=== PATIENT | female | born 1990 | race Caucasian/White ===

== ENCOUNTER → 2017-11-04 09:15 | Outpatient (CLI) | payer BC, SELFPAY ==
[2017-11-04 10:58] LABS: Hematocrit 36.4 % (37-47); Hemoglobin 12.1 g/dl (12.0-15.0); Mean Corp Hgb Conc 33.2 g/gl (32-36); Mean Corpuscular Hgb 30.9 pg (27.0-32.0); Mean Corpuscular Volume 93.1 fL (81-99); Mean Platelet Vol. 11.5 fl (6.2-12.0); Platelet Count 182 K/mm3 (150-450); RBC Distribution Width CV 12.7 % (11.6-14.6); RBC Distribution Width SD 42.9 fl (35.1-43.9); Red Blood Count 3.91 M/mm3 (4.2-5.4); White Blood Count 8.3 K/mm3 (4.4-11.0)
[2017-11-04 11:05] LABS: Glucose Challenge Gest 1H 50g 77 mg/dL (70-140)
[2017-11-04 11:06] LABS: Scan Indicated on CBC? Y/N NO
== END ==
PROVIDERS: Visit Provider Obstetrics & Gynecology
DX: Z34.83 Encounter for supervision of other normal pregnancy, third trimester (principal)
CPT/HCPCS: 36415; 82950; 85027

== ENCOUNTER → 2017-12-30 10:00 | Outpatient (CLI) | payer BC, SELFPAY ==
--- NOTE | 2017-12-30 10:00 | DT_ITS ---
This patient was seen during an EMR downtime December 29, 2017 - January 05, 2018. This patient may have a combination of paper and electronic documentation or all paper documentation. All documentation is viewable within the e-chart portion of [facility] for each patient visit.
[2018-01-02 13:18] LABS: Group B Strep DNA By PCR Negative (Negative); Internal Control PASS; Probe Check PASS; Specimen Processing Control PASS
== END ==
PROVIDERS: Family Provider Family Medicine; PCP Family Medicine; Visit Provider Obstetrics & Gynecology
DX: Z36.85 Encounter for antenatal screening for Streptococcus B (principal)
CPT/HCPCS: 87081; 87653

== ENCOUNTER 2018-01-29 19:00 | Inpatient (IN) | payer BC, SELFPAY ==
[2018-01-29] MEDS: 0.9% Saline Lock 10 ML Syringe IV (19:45)
[2018-01-29 19:56] VITALS: BMI 31.9
[2018-01-29] MEDS: miSOPROStol 25 MCG TABLET PO (19:57)
[2018-01-29 20:11] LABS: Hematocrit 34.9 % (37-47); Hemoglobin 11.2 g/dl (12.0-15.0); Mean Corp Hgb Conc 32.1 g/gl (32-36); Mean Corpuscular Hgb 28.1 pg (27.0-32.0); Mean Corpuscular Volume 87.5 fL (81-99); Mean Platelet Vol. 11.8 fl (6.2-12.0); Platelet Count 161 K/mm3 (150-450); RBC Distribution Width CV 13.1 % (11.6-14.6); RBC Distribution Width SD 42.1 fl (35.1-43.9); Red Blood Count 3.99 M/mm3 (4.2-5.4); White Blood Count 7.8 K/mm3 (4.4-11.0)
[2018-01-29 20:12] LABS: Scan Indicated on CBC? Y/N NO
[2018-01-30] MEDS: miSOPROStol 25 MCG TABLET PO ×2 (00:06→03:59)
--- NOTE | 2018-01-30 06:51 | PCM.PN.BLA ---
Progress Note INDUCTION PROGRESS NOTE Having UCs but not painful. Ready to order breakfast. Possible SROM, ROM test pending AVSS Cytotec three doses given. EFM 110-120s avg variability. Accels noted UCs noted q 2-3 mins CX 1-2/very high. thick (just checked) A/P: 40 4/7 wk induction h/o LGA first baby. Probable SROM, ROM test pending. Breakfast ok. D/C Cytotec. Begin pitocin per protocol. Watch continued progress, descent.
[2018-01-30 06:56] LABS: ROM Internal Control Test YES-OK TO RESULT pt. (Internal QC)
[2018-01-30 06:57] LABS: ROM Patient Test POSITIVE (Negative)
[2018-01-30] MEDS: 0.9% Saline Lock 10 ML Syringe IV (07:25)
[2018-01-30] MEDS: Lactated Ringers 1,000 ML 50 ML IV ×3 (08:30→13:04)
[2018-01-30] MEDS: Oxytocin 30 units/NS 500 ml 30 UNITS/500 ML IV.SOLN IV (08:31)
[2018-01-30] MEDS: fentaNYL-bupivacaine (epidural) 100 ML BAG EPIDURAL (10:53)
--- NOTE | 2018-01-30 12:01 | PCM.PN.BLA ---
Progress Note INDUCTION OF LABOR 40 4/7 wk today comfortable now after epidural placement AVSS pitocin at 6 mIU/min. CX: Rocha and IUPC placed EFM category I tracing. Avg variability. Accels FHT baseline 120-130s Occasional variables noted. A/P: Induction SROM. On Pitocin . IUPC placed to guide to adequate mVUs. Anticipate .
[2018-01-30] MEDS: Oxytocin 30 units/NS 500 ml 30 UNITS/500 ML IV.SOLN 334 UNITS IV (17:37)
[2018-01-30] MEDS: Oxytocin 30 units/NS 500 ml 30 UNITS/500 ML IV.SOLN 167 UNITS IV (18:07)
--- NOTE | 2018-01-30 18:08 | PCM.OB.VAG ---
- Problem List (1) 40 weeks gestation of Status: Acute Vaginal Delivery Maternal Presentation: Elective Induction Method of Induction: Pitocin Amniotic Membrane Rupture Type: Spontaneous Rupture of Membrane time: 0642h 01/30/18 Amniotic Fluid Description: Clear Final SHIKHA: 01/26/18 Final SHIKHA Source: US <20 weeks Gestational age: 40 Weeks and 5 Days Date of Procedure: 01/30/18 Pre-Operative Diagnosis: IUP @ 40 4/7wga Post-Operative Diagnosis: IUP @ 40 4/7wga Surgery/ Procedure Performed: Spontaneous Vaginal Delivery Anesthesiologist: Hellen Allen Type of Anesthesia: Epidural Description of Procedure: Patient was FD/+3 station on my arrival. She pushed to deliver a vigorous female in [place]. The infant was placed on the maternal abdomen and further attended by nursery personnel. The cord was doubly clamped and cut at approximately 3-4 minutes of life. Cord gas specimen were obtained. The placenta delivered spontaneously and appeared intact on inspection. A second degree perineal laceration with vaginal extension was repaired with 3-0 Vicryl Rapide. A left labial minoral laceration was repaired with 3-0 Vicryl Rapide. The fundus was firm and hemostasis attained. Sponge counts correct x 2/. Presentation: PIEDAD Placental Delivery Description: Spontaneous Placenta Disposition: [facility] Cord Vessel Description: 3 Vessels Nuchal Cord Compression: Without compression Cord Gases drawn per routine: ABG, VBG Cord Entanglement: None Drain: Rocha to straight drain Estimated Blood Loss: 350 ml Infant A gender: Female (1 minute): 8 (5 minute): 9 Episiotomy Description: None Laceration: Midline, Perineal Extension/lac, 2nd degree Medications given after delivery: IV Pitocin Complications: None
--- NOTE | 2018-01-30 18:13 | OP.PCM_ITS ---
- Problem List (1) 40 weeks gestation of Status: Acute Vaginal Delivery Maternal Presentation: Elective Induction Method of Induction: Pitocin Amniotic Membrane Rupture Type: Spontaneous Rupture of Membrane time: 0642h 01/30/18 Amniotic Fluid Description: Clear Final SHIKHA: 01/26/18 Final SHIKHA Source: US <20 weeks Gestational age: 40 Weeks and 5 Days Date of Procedure: 01/30/18 Pre-Operative Diagnosis: IUP @ 40 4/7wga Post-Operative Diagnosis: IUP @ 40 4/7wga Surgery/ Procedure Performed: Spontaneous Vaginal Delivery Anesthesiologist: Hellen Allen Type of Anesthesia: Epidural Description of Procedure: Patient was FD/+3 station on my arrival. She pushed to deliver a vigorous female in [place]. The infant was placed on the maternal abdomen and further attended by nursery personnel. The cord was doubly clamped and cut at approximately 3-4 minutes of life. Cord gas specimen were obtained. The placenta delivered spontaneously and appeared intact on inspection. A second degree perineal laceration with vaginal extension was repaired with 3- 0 Vicryl Rapide. A left labial minoral laceration was repaired with 3-0 Vicryl Rapide. The fundus was firm and hemostasis attained. Sponge counts correct x 2/. Presentation: PIEDAD Placental Delivery Description: Spontaneous Placenta Disposition: [facility] Cord Vessel Description: 3 Vessels Nuchal Cord Compression: Without compression Cord Gases drawn per routine: ABG, VBG Cord Entanglement: None Drain: Rocha to straight drain Estimated Blood Loss: 350 ml A gender: Female (1 minute): 8 (5 minute): 9 Episiotomy Description: None Laceration: Midline, Perineal Extension/lac, 2nd degree Medications given after delivery: IV Pitocin Complications: None
[2018-01-30 19:45] VITALS: BP 109/72; PULSE 75; RESP 16; TEMP 36.7; O2SAT 98
--- NOTE | 2018-01-30 21:16 | NURSING ---
epidural catheter removed- bluetip intact
[2018-01-31] MEDS: Ibuprofen 600 MG Tablet PO ×2 (00:14→10:35)
[2018-01-31 00:15] VITALS: BP 109/65; PULSE 76; RESP 18; TEMP 37.1; O2SAT 98
[2018-01-31 03:20] VITALS: BP 109/64; PULSE 91; RESP 16; TEMP 36.8; O2SAT 98
[2018-01-31] MEDS: Acetaminophen 325 MG Tablet 650 MG PO ×2 (04:43→19:34)
--- NOTE | 2018-01-31 06:46 | PCM.PN.OB ---
Patient Problems: Active and Suspected Problems 40 weeks gestation of (Acute) Subjective: latching and nursing well. Chanel indicates surprise as her son did not latch when he was born. She plans to continue nursing. Cramping improved with Ibuprofen. She has been out of bed and voided without difficulty. Denies heavy lochia. Objective: AVSS - Physical Exam General: Alert, Oriented x3, Cooperative, No apparent distress HEENT: Atraumatic Lungs: Clear to auscultation, Normal air movement Cardiovascular: Regular rate, Regular Rhythm, Normal S1, Normal S2 Abdomen: Soft, Non Tender, Non-Distended, - - Fundus firm and nontender, lochia moderate Extremities: No edema, No Calf Tenderness Neurological: Neuro grossly intact Psych/Mental Status: Normal Affect, Appropriate, Alert and oriented to time, place, person, mood and affect Vital Signs Temp Pulse Resp BP Pulse Ox 98.2 F 91 16 109/64 98 01/31/18 03:20 01/31/18 03:20 01/31/18 03:20 01/31/18 03:20 01/31/18 03:20 Oxygen Delivery Method Room Air Weight: 106.9 kg Body Mass Index (BMI) 31.9 Intake and Output for Last 24 Hours 01/29/18 01/30/18 01/31/18 23:59 23:59 23:59 Intake Total 2321 / 2321 425 / 425 Output Total 1000 / 1000 1600 / 1600 Balance 1321 / 1321 -1175 / -1175 Laboratory Tests Past 24 Hrs 01/30/18 06:42 Vag Amniotic Fld Detect POSITIVE H Medical Necessity - Tobacco Use Smoking Status: Never smoker Assessment/Plan All Active Problems 40 weeks gestation of (Acute) 27yo PPD#1 s/p doing well. -B positive - -Routine care
--- NOTE | 2018-01-31 07:02 | DCINST_ITS ---
Discharge Diet: No Restrictions Discharge Activity: Return to Normal Activity, May Shower May resume sexual activity in: 6 weeks Call your doctor if your incision/area has: Continuous Slow Oozing, Sudden Increased Bleeding, Increased Pain/ Swelling, Increased Redness, Foul Smelling Discharge Call your doctor if you observe: Fever of 101 or Higher, Inability to urinate, Inability to have a bowel movement, Using more than one pad per hour, Shortness of breath, Chest pain, Calf discomfort, Uncontrolled pain Additional Instructions: If you experience any of the following, contact your healthcare provider. * Bleeding that soaks a pad every hour for 2 hours * Fever 100.4 or higher * Unrelieved incision or abdominal pain * Swelling, redness, discharge or bleeding from your incision or episiotomy site * Your incision begins to separate * Problems urinating (including inability to urinate or burning while urinating) . * Visual changes * Severe headache * Flu-like symptoms * Pain or redness in one of both of your breasts * Pain, warmth, tenderness or swelling in your legs, especially the calf area * Frequent nausea and vomiting * Symptoms of depression or anxiety If you experience any of the following, call 911 or go to the nearest Emergency Room. * Chest pain * Problems breathing * Seizure activity * Partial or complete paralysis of a body part, slurred speech, weakness or drooping of the face, or a sudden inability to walk or hold your balance Take a multivitamin for 6 weeks or longer if you continue . Allergies/Adverse Reactions: Allergies No Known Allergies Allergy (Verified 08/01/15 12:00) Medications to take at Discharge Ibuprofen 600 mg PO TID PRN #30 tab 01/31/18 The following prescriptions were given: Ibuprofen 600 mg PO TID PRN #30 tab PRN Reason: Pain Please Follow Up With: Angela Hodge MD Primary Care Physician: Danilo Mitchell [Primary Care Provider] - Test Results: Test results from this visit will be discussed in further detail at your follow- up appointment, if applicable.
[2018-01-31 08:00] VITALS: BP 110/65; PULSE 75; RESP 16; TEMP 36; O2SAT 96
[2018-01-31] MEDS: Senna/Docusate Sodium 1 Tablet PO (10:35)
[2018-01-31 12:34] VITALS: BP 117/71; PULSE 78; RESP 20; TEMP 36.9; O2SAT 98
[2018-01-31 16:30] VITALS: BP 122/72; PULSE 87; RESP 18; TEMP 36.6; O2SAT 97
[2018-01-31 19:40] VITALS: BP 125/71; PULSE 81; RESP 16; TEMP 37.1
[2018-02-01 01:20] VITALS: BP 112/63; PULSE 73; RESP 16; TEMP 36.8
[2018-02-01] MEDS: Ibuprofen 600 MG Tablet PO ×2 (01:40→08:20)
[2018-02-01 08:24] VITALS: BP 117/73; PULSE 68; RESP 18; TEMP 36.9; O2SAT 99
--- NOTE | 2018-02-01 09:45 | PCM.PN.OB ---
Patient Problems: Active and Suspected Problems (spontaneous vaginal delivery) (Acute) 40 weeks gestation of (Acute) Subjective: No issues overnight. Transitioning to bottlefeeding. Denies heavy lochia. Objective: AVSS - Physical Exam General: Alert, Oriented x3, Cooperative HEENT: Atraumatic, Normocephalic Lungs: Clear to auscultation, Normal air movement Cardiovascular: Regular rate, Regular Rhythm, Normal S1, Normal S2 Abdomen: Bowel Sounds Present, Non Tender, Non-Distended Extremities: No edema, No Calf Tenderness Neurological: Neuro grossly intact Psych/Mental Status: Normal Affect, Appropriate, Alert and oriented to time, place, person, mood and affect Vital Signs Temp Pulse Resp BP Pulse Ox 98.4 F 68 18 117/73 99 02/01/18 08:24 02/01/18 08:24 02/01/18 08:24 02/01/18 08:24 02/01/18 08:24 Oxygen Delivery Method Room Air Weight: 106.9 kg Body Mass Index (BMI) 31.9 Intake and Output for Last 24 Hours 01/30/18 01/31/18 02/01/18 23:59 23:59 23:59 Intake Total 2321 / 2321 425 / 425 Output Total 1000 / 1000 1600 / 1600 Balance 1321 / 1321 -1175 / -1175 Medical Necessity - Tobacco Use Smoking Status: Never smoker Assessment/Plan All Active Problems (spontaneous vaginal delivery) (Acute) 40 weeks gestation of (Acute) 27yo PPD#2 s/p doing well. -B positive - -Routine care -d/c home today
--- NOTE | 2018-02-01 10:55 | PCM.DC.SUM ---
Discharge Date and Diagnosis - Problem List Patient Problems: Active and Suspected Problems (spontaneous vaginal delivery) (Acute) 40 weeks gestation of (Acute) Date of Admission: 01/29/18 Date of Discharge: 02/01/18 - Primary Discharge Diagnosis Active and Suspected Problems (spontaneous vaginal delivery) (Acute) 40 weeks gestation of (Acute) Hospital Course and Treatment Operations: None Summary of Care Provided: The patient is a 27 year old F 2 para 1 admitted at 40 weeks 3 days gestation for elective induction of labor. She had an uncomplicated at 40 weeks 4 days. Her post-operative course was unremarkable. She was discharged to home on day #2. Discharge Diet: No Restrictions Discharge Activity: Return to Normal Activity, May Shower May resume sexual activity in: 6 weeks Call your doctor if your incision/area has: Continuous Slow Oozing, Sudden Increased Bleeding, Increased Pain/ Swelling, Increased Redness, Foul Smelling Discharge Call your doctor if you observe: Fever of 101 or Higher, Inability to urinate, Inability to have a bowel movement, Using more than one pad per hour, Shortness of breath, Chest pain, Calf discomfort, Uncontrolled pain Home Medications: Medications to take at Discharge Ibuprofen 600 mg PO TID PRN #30 tab 01/31/18 Following Prescrptions Were Given to Patient: Ibuprofen 600 mg PO TID PRN #30 tab PRN Reason: Pain Primary Care Physician: Danilo Mitchell [Primary Care Provider] - Please Follow Up With: Angela Hodge MD When: 6 weeks Medical Necessity - Tobacco Use Smoking Status: Never smoker Meaningful Use Info Meaningful Use Diagnoses (Choose all that apply): None applicable
== END 2018-02-01 10:35 | disposition home or self-care (01) | DRG 775 ==
PROVIDERS: Admitting Provider Obstetrics & Gynecology; Family Provider Family Medicine; PCP Family Medicine; Visit Provider Obstetrics & Gynecology
DX: O70.1 Second degree perineal laceration during delivery (principal); Z37.0 Single live birth; Z3A.40 40 weeks gestation of pregnancy
CPT/HCPCS: 59025; 59050; 84112; 85027; 86850; 86900; 99218; J7120; A4216; G0378

== ENCOUNTER → 2020-11-14 | Outpatient (CLI) | payer BC, SELFPAY ==
[2020-11-20 18:49] LABS: HPV APTIMA, High Risk Negative (Negative)
== END | disposition home or self-care (01) ==
LOC: LABSPEC 11-15 08:36
PROVIDERS: PCP Family Medicine; Visit Provider Student in an Organized Health Care Education/Training Program
DX: Z12.4 Encounter for screening for malignant neoplasm of cervix (principal)
CPT/HCPCS: 87624; 88175; G0145

== ENCOUNTER → 2021-05-30 12:01 | Outpatient (CLI) | payer OTHER, SELFPAY ==
[2021-05-30 12:33] LABS: Absolute Lymphocyte Count 1.45 X10^3/uL (0.83-4.51); Absolute Neutrophil Count 6.6 X10^3/uL (2.0-7.7); Basophil# 0.03 X10^3/uL; Basophil% 0.3 % (0-1); Eosinophil# 0.08 X10^3/uL; Eosinophils% 0.9 % (0-5); Hemoglobin 14.1 g/dL (12.0-15.0); Lymphocyte # 1.45 X10^3/ul (0.83-4.51); Lymphocyte % 16.9 % (19-41); Mean Corp Hgb Conc 34.4 g/dL (32-36); Mean Corpuscular Hgb 30.8 pg (27.0-32.0); Mean Corpuscular Volume 89.5 fL (81-99); Mean Platelet Vol. 11.5 fl (6.2-12.0); Monocyte# 0.41 X10^3/uL; Monocyte% 4.8 % (0-10); NRBC Flagged by Analyzer 0 % (0-5); Neutrophil % 76.8 % (47-70); Platelet Count 218 K/mm3 (150-450); RBC Distribution Width SD 38.4 fl (35.1-43.9); Red Blood Count 4.58 M/mm3 (4.2-5.4); White Blood Count 8.6 K/mm3 (4.4-11.0)
[2021-05-30 12:45] LABS: Color, Urine Yellow (Yellow); Glucose, Dipstick Normal (Normal); Ketone-Dipstick Negative (Negative); Leukocyte Esterase-Dipstick 500 /ul (Negative); Nitrite-Dipstick Negative (Negative); Occult Blood-Urine 10 /ul (Negative); Protein-Dipstick Negative (Negative); Urine Bilirubin Dipstick Negative (Negative); Urine Clarity Sl. Cloudy (Clear); Urine Urobilinogen Normal (Normal); Urine pH 6.5 (5.0 - 8.0)
[2021-05-30 12:54] LABS: Amphetamine Urine VISTA NEGATIVE (<1000 ng/mL); Barbiturate Urine VISTA NEGATIVE (< 200 ng/mL); Benzodiazepine Urine VISTA NEGATIVE (< 200 ng/mL); Cocaine Urine VISTA NEGATIVE (< 300 ng/mL); Ecstacy Urine VISTA NEGATIVE (< 500 ng/mL); Methadone Urine VISTA NEGATIVE (< 300 ng/mL); PCP Urine VISTA NEGATIVE (< 25 ng/mL); THC Urine VISTA NEGATIVE (< 50 ng/mL); Vista UDS pH Range 6
[2021-05-30 13:03] LABS: Thyroid Stim Hormone (TSH) 1.38 uIU/mL (0.358-3.74)
[2021-05-30 13:25] LABS: HIV - WCH Non-Reactive (Nonreactive); Hepatitis B Surface Antigen Non-Reactive (Nonreactive); Hepatitis C Antibody Non-Reactive (Nonreactive); Rubella IgG Reactive (Nonreactive); Syphilis Antibodies Non-reactive
[2021-06-01 05:07] LABS: Chlamydia By Nucleic Acid AMP Negative (Negative)
[2021-06-01 08:16] LABS: Gonococcus By Nucleic Acid AMP Negative (Negative)
== END ==
PROVIDERS: PCP Family Medicine; Visit Provider Obstetrics & Gynecology
DX: Z34.81 Encounter for supervision of other normal pregnancy, first trimester (principal)
CPT/HCPCS: 36415; 80307; 81002; 84443; 85025; 86703; 86762; 86780; 86803; 87086; 87088; 87340; 87491; 87591

== ENCOUNTER 2021-10-16 09:52 | Outpatient (CLI) | payer OTHER, SELFPAY ==
[2021-10-16 10:50] LABS: Hematocrit 39.5 % (37-47); Hemoglobin 13.6 g/dL (12.0-15.0); Mean Corp Hgb Conc 34.4 g/dL (32-36); Mean Corpuscular Hgb 31.5 pg (27.0-32.0); Mean Corpuscular Volume 91.4 fL (81-99); Mean Platelet Vol. 11.9 fl (6.2-12.0); Platelet Count 160 K/mm3 (150-450); RBC Distribution Width CV 12.8 % (11.6-14.6); RBC Distribution Width SD 42.4 fl (35.1-43.9); Red Blood Count 4.32 M/mm3 (4.2-5.4); White Blood Count 9.4 K/mm3 (4.4-11.0)
[2021-10-16 10:56] LABS: Glucose Challenge Gest 1H 50g 150 mg/dL (70-140)
== END 2021-10-16 23:59 | disposition home or self-care (01) ==
LOC: WOBLAB 09:52
PROVIDERS: PCP Family Medicine; Visit Provider Obstetrics & Gynecology
DX: Z34.83 Encounter for supervision of other normal pregnancy, third trimester (principal)
CPT/HCPCS: 36415; 82950; 85027

== ENCOUNTER 2021-10-23 08:42 | Outpatient (CLI) | payer OTHER, SELFPAY ==
[2021-10-23 09:28] LABS: Glucose GTT-Gestation. Fasting 85 mg/dL (<105)
[2021-10-23 10:55] LABS: Glucose GTT-Gestational 1 Hr 134 mg/dL (<190)
[2021-10-23 12:08] LABS: Glucose GTT-Gestational 2 Hr 85 mg/dL (<165)
[2021-10-23 13:45] LABS: Glucose GTT-Gestational 3 Hr 72 L (<145)
== END 2021-10-23 23:59 | disposition home or self-care (01) ==
LOC: WOBLAB 08:43
PROVIDERS: PCP Family Medicine; Visit Provider Obstetrics & Gynecology
DX: O24.912 Unspecified diabetes mellitus in pregnancy, second trimester (principal)
CPT/HCPCS: 36415; 82951; 82952

== ENCOUNTER → 2021-12-07 | Outpatient (CLI) | payer OTHER, SELFPAY ==
[2021-12-07 10:53] LABS: Partial Thromboplast Time 28.9 Seconds (24.1-36.2); Prothrombin Time (Protime)PT. 13.4 SECONDS (11.7-14.9)
[2021-12-07 11:23] LABS: Hemoglobin 13.3 g/dL (12.0-15.0); Mean Corp Hgb Conc 34.1 g/dL (32-36); Mean Corpuscular Hgb 30.9 pg (27.0-32.0); Mean Corpuscular Volume 90.7 fL (81-99); Mean Platelet Vol. 12.3 fl (6.2-12.0); Platelet Count 128 K/mm3 (150-450); RBC Distribution Width SD 42.4 fl (35.1-43.9); White Blood Count 8.3 K/mm3 (4.4-11.0)
== END | disposition home or self-care (01) ==
LOC: WOBLAB 10:33
PROVIDERS: PCP Family Medicine; Visit Provider Obstetrics & Gynecology
DX: Z34.83 Encounter for supervision of other normal pregnancy, third trimester (principal)
CPT/HCPCS: 36415; 85027; 85610; 85730

== ENCOUNTER 2021-12-16 15:13 | Emergency (ER) | payer OTHER, SELFPAY ==
[2021-12-16 15:15] VITALS: BP 126/89; PULSE 65; RESP 14; TEMP 36.2; O2SAT 98; BMI 32.4
--- NOTE | 2021-12-16 15:31 | EDS_ITS ---
HPI History of Present Illness Chief Complaint: Itching Narrative Narrative: Patient is 38 weeks . She is complaining of generalized itching. No new soaps or shampoos, no new medications except for that she switched from Lovenox to heparin about 2 weeks ago. No prior liver problems she has not noticed any jaundice. She has no dysuria but she has noticed her urine being a little more orange than normal, it is not brown or tea colored. She has no flank pain. No chest pain or shortness of breath. PFSH PFSH Home Medications ibuprofen 600 mg PO TID PRN #30 tab 01/31/18 [Rx Last Taken Unknown] Allergy/AdvReac Type Severity Reaction Status Date / Time No Known Allergies Allergy Verified 12/16/21 15:17 Social History Smoking Status: Never smoker ROS ROS ED ROS Narrative Past medical history: Reviewed Medications: Reviewed Social history: Noncontributory Review of systems: All systems negative except as indicated General: No fever Eyes: No visual changes ENT: No upper airway congestion, normal voice Neck: No neck pain Cardiovascular: No chest pain Respiratory: No shortness of breath or cough Gastrointestinal: No abdominal pain, nausea vomiting or diarrhea Genitourinary: No dysuria, no hematuria no frequency or urgency, the urine has more orange color than normal Musculoskeletal: Denies myalgias no difficulty with ambulation Skin: As in HPI Neurological: No memory loss, confusion or any focal weakness Psych: No recent behavioral changes Hematologic: No easy bleeding or easy bruising EXAM Physical Exam Narrative Exam Narrative: Physical exam General: Well nourished, Well developed, No Acute Distress Head: Normocephalic, Atraumatic Eyes: Conjunctiva not pale. I cannot appreciate any scleral icterus. ENT: Moist mucous membranes Neck: Supple, Nontender, No lymphadenopathy Cardiovascular: Regular rate, Regular rhythm Respiratory: No distress, CTA bilaterally Abdomen: Soft, gravid but nontender. Back: Nontender, Normal Inspection. Negative for: CVA tenderness Extremities: Nontender, No edema Skin: Normal color, No rash. No jaundice Neurological: Alert, Normal Strength, Normal Sensation Psychological: Normal affect Const Vital Signs: 12/16/21 15:15 12/16/21 17:04 Temperature 97.2 F L Temperature Source Temporal Pulse Rate 65 65 Respiratory Rate 14 16 Blood Pressure 126/89 H 118/82 H Blood Pressure Mean 101 94 Pulse Ox 98 97 Oxygen Delivery Method Room Air Room Air MDM MDM MDM Narrative Medical decision making narrative: Patient's work-up is consistent with slight elevation in transaminases, because of the worry of help syndrome I discussed with EMERGENCY RESPONSE COORDINATOR, Dr. Young, who can follow the patient outpatient, at this time he believes the patient to be discharged platelets were slightly lower than before but she has had low platelets in the past I at this time I do not believe she has any signs or symptoms of HIT either. She was educated on any kind of petechiae bleeding lightheadedness or fainting changes she is to return to the emergency department. She understands this otherwise she is to follow-up with OB for repeat blood work in the next 2-3 days. Lab Data Labs: Laboratory Results - last 24 hr 12/16/21 12/16/21 12/16/21 15:38 15:45 15:45 WBC 6.6 RBC 4.68 Hgb 14.5 Hct 42.3 MCV 90.4 MCH 31.0 MCHC 34.3 RDW Std Deviation 42.3 RDW Coeff of Renetta 12.8 Plt Count 118 L MPV 11.8 Immature Gran % (Auto) 0.500 Neut % (Auto) 66.2 Lymph % (Auto) 26.7 [place] % (Auto) 5.5 Eos % (Auto) 0.6 Baso % (Auto) 0.5 Absolute Neuts (auto) 4.4 Absolute Lymphs (auto) 1.76 Nucleated RBC % 0 Differential Comment SCANNED Sodium 138 Potassium 4.1 Chloride 108 H Carbon Dioxide 22.0 Anion Gap 8 BUN 9 Creatinine 0.92 Estim Creat Clear Calc 100.37 Est GFR (MDRD) Af Amer 90 Est GFR (MDRD) Non-Af 74 BUN/Creatinine Ratio 9.8 L Glucose 84 Calcium 8.6 Total Bilirubin 1.00 Direct Bilirubin 0.60 H AST 102 H ALT 190 H Alkaline Phosphatase 132 H Total Creatine Kinase Total Protein 6.6 Albumin 2.9 L Globulin 3.7 Urine Color Yellow Urine Clarity Cloudy Urine pH 6.5 Ur Specific [place] 1.015 Urine Protein 15 H Urine Glucose (UA) Normal Urine Ketones Negative Urine Occult Blood 10 H Urine Nitrite Negative Urine Bilirubin Negative Urine Urobilinogen 1 H Ur Leukocyte Esterase 500 H Urine RBC 0 SEEN Urine WBC 50-100 SEEN Ur Squamous Epith Cells 10-25 SEEN Urine Bacteria 3+ Urine Mucus 0 SEEN 12/16/21 15:45 WBC RBC Hgb Hct MCV MCH MCHC RDW Std Deviation RDW Coeff of [place] Plt Count MPV Immature Gran % (Auto) Neut % (Auto) Lymph % (Auto) [place] % (Auto) Eos % (Auto) Baso % (Auto) Absolute Neuts (auto) Absolute Lymphs (auto) Nucleated RBC % Differential Comment Sodium Potassium Chloride Carbon Dioxide Anion Gap BUN Creatinine Estim Creat Clear Calc Est GFR (MDRD) Af Amer Est GFR (MDRD) Non-Af BUN/Creatinine Ratio Glucose Calcium Total Bilirubin Direct Bilirubin AST ALT Alkaline Phosphatase Total Creatine Kinase 36 Total Protein Albumin Globulin Urine Color Urine Clarity Urine pH Ur Specific [place] Urine Protein Urine Glucose (UA) Urine Ketones Urine Occult Blood Urine Nitrite Urine Bilirubin Urine Urobilinogen Ur Leukocyte Esterase Urine RBC Urine WBC Ur Squamous Epith Cells Urine Bacteria Urine Mucus Discharge Plan Triage Chief Complaint: Itching ED Provider: Volodymyr Cruz Dx/Rx/DC Orders Clinical Impression: Itching, Elevated transaminase measurement, Thrombocytopenia Prescriptions: No Action ibuprofen 600 MG tablet 600 mg PO TID PRN (Reason: Pain) Qty: 30 RF: 0 Primary Care Provider: Danilo Mitchell Referrals: Danilo Mitchell MD [Primary Care Provider] - Kalani Delgado MD [STAFF PHYSICIAN] - 2 Days Disposition Disposition: Home, Self Care
[2021-12-16 15:43] LABS: Mucous, Urine 0 SEEN /hpf (<or=2+); Red Blood Cells-Urine 0 SEEN /hpf (0-5)
[2021-12-16 15:44] LABS: Color, Urine Yellow (Yellow); Glucose, Dipstick Normal (Normal); Ketone-Dipstick Negative (Negative); Leukocyte Esterase-Dipstick 500 /ul (Negative); Nitrite-Dipstick Negative (Negative); Occult Blood-Urine 10 /ul (Negative); Protein-Dipstick 15 mg/dl (Negative); Specific Gravity, Urine 1.015 (1.002-1.030); Urine Bilirubin Dipstick Negative (Negative); Urine Clarity Cloudy (Clear); Urine Urobilinogen 1 mg/dl (Normal); Urine pH 6.5 (5.0 - 8.0)
[2021-12-16 15:50] LABS: White Blood Cells 50-100 SEEN /hpf (0-5)
[2021-12-16 15:50] LABS: Absolute Lymphocyte Count 1.76 X10^3/uL (0.83-4.51); Absolute Neutrophil Count 4.4 X10^3/uL (2.0-7.7); Basophil# 0.03 X10^3/uL; Basophil% 0.5 % (0-1); Eosinophil# 0.04 X10^3/uL; Eosinophils% 0.6 % (0-5); Hematocrit 42.3 % (37-47); Hemoglobin 14.5 g/dL (12.0-15.0); Lymphocyte # 1.76 X10^3/ul (0.83-4.51); Lymphocyte % 26.7 % (19-41); Mean Corp Hgb Conc 34.3 g/dL (32-36); Mean Corpuscular Volume 90.4 fL (81-99); Mean Platelet Vol. 11.8 fl (6.2-12.0); Monocyte# 0.36 X10^3/uL; Monocyte% 5.5 % (0-10); NRBC Flagged by Analyzer 0 % (0-5); Neutrophil # 4.38 X10^3/uL (2.7-7.7); Neutrophil % 66.2 % (47-70); POSITIVE MORPHOLOGY YES; Platelet Count 118 K/mm3 (150-450); RBC Distribution Width CV 12.8 % (11.6-14.6); RBC Distribution Width SD 42.3 fl (35.1-43.9); Red Blood Count 4.68 M/mm3 (4.2-5.4); White Blood Count 6.6 K/mm3 (4.4-11.0)
[2021-12-16 15:51] LABS: Bacteria 3+ /hpf (None Seen); Squamous Epithelial Cells - UA 10-25 SEEN /hpf (5-10)
[2021-12-16] MEDS: hydrOXYzine PAM 25 MG Capsule 50 MG PO (15:52)
[2021-12-16 16:03] LABS: Differential Indicated SCAN CRITERIA MET
[2021-12-16 16:09] LABS: AST(SGOT) 102 U/L (15-37); Alanine Aminotransfer ALT/SGPT 190 U/L (13-56); Albumin, Serum 2.9 g/dL (3.2-5.0); Alkaline Phosphatase 132 U/L (45-117); Anion Gap 8 (5-15); BUN 9 mg/dL (7-18); BUN/Creat Ratio 9.8 RATIO (10-20); Calcium,Total 8.6 mg/dL (8.5-10.1); Chloride 108 mmol/L (98-107); Creatinine, Serum 0.92 mg/dL (0.55-1.02); EST Glomerular Filtration Rate 74 mL/min (>60); Est Glom Filt Rate - Afr Amer 90 mL/min (>60); Estimated Creatinine Clearance 100.37 ml/min; Globulin 3.7 g/dL (2.2-4.2); Glucose 84 mg/dL (74-106); Potassium 4.1 mmol/L (3.5-5.1); Protein, Total 6.6 g/dL (6.4-8.2); Sodium Level 138 mmol/L (136-145)
[2021-12-16 16:16] LABS: CPK Total, Creatine Kinase 36 U/L (26-192)
[2021-12-16 16:36] LABS: Differential Comment SCANNED
[2021-12-16 17:04] VITALS: BP 118/82; PULSE 65; RESP 16; O2SAT 97
== END 2021-12-16 17:59 | disposition home or self-care (01) ==
PROVIDERS: Emergency Provider Emergency Medicine; PCP Family Medicine; Visit Provider Emergency Medicine
DX: O99.713 Diseases of the skin and subcutaneous tissue complicating pregnancy, third trimester (principal); D69.6 Thrombocytopenia, unspecified; L29.9 Pruritus, unspecified; O99.113 Other diseases of the blood and blood-forming organs and certain disorders involving the immune mechanism complicating pregnancy, third trimester; O26.893 Other specified pregnancy related conditions, third trimester; R74.01 Elevation of levels of liver transaminase levels; Z3A.38 38 weeks gestation of pregnancy
CPT/HCPCS: 80048; 80076; 81001; 82550; 85025; 99281; 99282; A4216

== ENCOUNTER 2021-12-19 14:42 | Inpatient (IN) | payer OTHER, SELFPAY ==
[2021-12-19 15:21] VITALS: BP 117/71; PULSE 60; PULSE 61; TEMP 36.4; O2SAT 92; O2SAT 95
[2021-12-19] MEDS: miSOPROStol 25 MCG TABLET VAGINAL ×2 (15:55→20:07)
[2021-12-19 15:57] LABS: Absolute Lymphocyte Count 1.65 X10^3/uL (0.83-4.51); Absolute Neutrophil Count 4.7 X10^3/uL (2.0-7.7); Basophil# 0.04 X10^3/uL; Basophil% 0.6 % (0-1); Eosinophil# 0.05 X10^3/uL; Eosinophils% 0.7 % (0-5); Hematocrit 41.1 % (37-47); Hemoglobin 14.2 g/dL (12.0-15.0); Lymphocyte # 1.65 X10^3/ul (0.83-4.51); Lymphocyte % 24.2 % (19-41); Mean Corp Hgb Conc 34.5 g/dL (32-36); Mean Corpuscular Hgb 30.6 pg (27.0-32.0); Mean Corpuscular Volume 88.6 fL (81-99); Mean Platelet Vol. 12.6 fl (6.2-12.0); Monocyte# 0.31 X10^3/uL; Monocyte% 4.6 % (0-10); NRBC Flagged by Analyzer 0 % (0-5); Neutrophil # 4.71 X10^3/uL (2.7-7.7); Neutrophil % 69.2 % (47-70); Platelet Count 118 K/mm3 (150-450); RBC Distribution Width CV 12.9 % (11.6-14.6); RBC Distribution Width SD 41.9 fl (35.1-43.9); Red Blood Count 4.64 M/mm3 (4.2-5.4); White Blood Count 6.8 K/mm3 (4.4-11.0)
[2021-12-19 16:03] VITALS: BMI 31.6
[2021-12-19 16:27] VITALS: PULSE 63; O2SAT 97
[2021-12-19 19:16] VITALS: TEMP 36.7
[2021-12-19 19:17] VITALS: BP 147/83; PULSE 65
[2021-12-19] MEDS: Zolpidem Tartrate 5 MG Tablet PO (21:08)
[2021-12-20] VITALS (18 sets, daily range): BP systolic 114–139; BP diastolic 65–87; PULSE 56–105; RESP 16; TEMP 36.4–36.8; O2SAT 92–97
[2021-12-20] MEDS: Lactated Ringers 1,000 ML 200 ML IV (00:15)
[2021-12-20] MEDS: Lactated Ringers 500 ML 999 ML IV (00:15)
[2021-12-20] MEDS: Oxytocin 30 units/NS 500 ml 30 UNITS/500 ML IV.SOLN 334 UNITS IV (01:04)
--- NOTE | 2021-12-20 01:23 | HP.PCM_ITS ---
History and Physical Date of Admission: 12/19/21 ACOG ANTEPARTUM RECORD - HISTORY AND PHYSICAL (12/20/2021) Name: GEORGI KNOWLES History of this : This is a 31 year old [id number] presents at 38 wks + 4 days gestation for induction for cholestasis of . OB Physician: Kalani Kaiser MD 's Physician: [facility] in [place] ...................................................................... : 1990 Age: 31 Address: [address] [place] [address] Phone: (H) [phone] (O) [phone] Insurance Carrier: [employer] [id number] Emergency Contact: MARTIR DILLARD/MOTHER [phone] ...................................................................... Final SHIKHA: 12/29/21 By Ultrasound: 13 weeks 3 days PARITY: (G-Total Pregnancies P-Fullterm,Premature,Induced AB,Spont AB, Ectopics, Multiple,Living) SHIKHA CONFIRMATION: By LMP: 03/24/21 By First Ultrasound Exam: 12/29/21 Final SHIKHA: 12/29/21 OB PROBLEM LIST: 1st cousin; Trisomy 18 Declines Carrier and Genetic Screening EPDS=6 Gestational thrombocytopenia Had Covid vaccine Had DVT and +Factor V Leiden - On Lovenox 40 mg daily 's father has Parkinson's Plans epidural. Plans to , then change to formula ALLERGIES: NKDA MEDICATIONS: heparin (porcine) 10,000 unit/mL injection solution Inject SC 10,000 units bid Lovenox 40 mg/0.4 mL subcutaneous syringe One injection SQ once daily Miralax 17 gram oral powder packet prn + DHA 28 mg iron- 975 mcg-200 mg combo pack daily promethazine 25 mg tablet 1/2 to 1 tab po q4h prn nausea Zofran 4 mg tablet One pill by mouth four times a day PRN nausea SOCIAL HISTORY: Smoking - Never Alcohol Use - denies drinking Diet - balanced Diet, caffeine < 2 drinks per day and water intake tries to drink 65 oz but has been nauseated Lifestyle - low stress lifestyle and Exercise - active Employer - [employer] Job Description - Senior Javascript Engineer Illicit Drug Use - denies use of street drugs Sexual Activity - Residence - lives with Place of - [place], [place] Hours Worked - 40 hours per week Spouse-Sig Other Name - Parveen Knowles Spouse-Sig Other Occupation - [employer] Spouse-Sig Other Phone No - [phone] Children Name(s) - Bunny ('16), Julianna ('18) PRIOR DELIVERY HISTORY DEL DATE GEST LAB WT LB WT OZ TYPE ANES LABOR TX Aug 12 39 11 8 10 Vag Epidural No Jan 18 41 10 8 0 Vag Epidural No ANTEPARTUM FLOW CHART VISIT RTC FU F F NC U U DATE WK MD WKS HT PN HR M SS BP ED WT NC GL D EF ST __ ____ ___ __ __ ___ __ __ __ ___ __ __ __ ___ __ November JMW 1 38 V + + 122/76 0 232 - - 2 50 hi November SHM 1 37 V + + 132/82 sl 238 tr - 1+ 50 -3 November SHM 1 36 V + + 120/76 sl 240 tr - November SHM 1 36 V + + 120/70 0 239 tr - 19 Oct 33 SHM 2 + 120/76 237 tr - Oct 32 CM 2 32 + + 122/78 0 236 tr ne Oct 23 SHM 4 29 + + 120/82 sl 233 ne ne Sep 20 SHM 4 142 + 126/68 sl 233 - - Aug 16 SHM 4 20 + ? 110/70 0 228 tr - Jul 13 SHM 4 17 + ? 106/80 sl 227 tr - Jun 09 SHM 4 + US 120/76 0 216 tr - ANTEPARTUM NOTE(S): Dec 19 2021: itching and elevated LFTs; to L and D Dec 11 2021: Ctxs-occas, Low Pressure,Good FM Dec 07 2021: GBS today, LARC declined Nov 30 2021: doing well Nov 13 2021: telehealth visit to review u/s and concerns Nov 05 2021: Brownish discharge since sep: doing well Sep 14 2021: see note Aug 17 2021: see note Jul 25 2021: bruising w/ lovenox Jun 26 2021: see note COMPREHENSIVE ANTEPARTUM NOTE(S): Dec 19 2021: Georgi is 38w4d here for PNV good FM no edema states she is still itching and it can keep her awake at night. Would like cervical check. BR Dec 19 2021: H faxed to OB. tkg Dec 11 2021: BPP 8/8, CEPHALIC, EFW 3340g (7lb6oz) - 71st%. Plan for IOL at 39wga for hx VTE on Heparin. IOL r/b/i reviewed. Consents today. Plt 127 c/w recurrent gestational thrombocytopenia. Dec 11 2021: Induction scheduled for 12/24 @ 7 pm. LMT Dec 07 2021: GBS obtained. CBC today. Continue Heparin. BPP 03/04, AALIYAH 12.7cm. Dec 05 2021: Georgi presents here today for Heparin teaching, as she has been using Lovenox and needs to switch over to Heparin 10,000 SQ units bid. Reports she does better with hands on teaching, so I verbally walked her through the depressurizing of the vial, withdrawing into the syringe, removing of excess air in syringe and giving of injection with reminder of rotating sites, as she had been doing with the Nov 30 2021: Georgi is here for visit. FM, SROM, and labor reviewed. Heparin, induction to be discussed with Dr GONZALEZ. LMT Nov 30 2021: Switch to Heparin. Discussed r/b. Check PT/PTT, platelets at next visit. Discussed timing of IOL at 39wga. Cervical check indications. Labor, ROM, FM precautions. Nov 13 2021: Here for u/s today that will be discussed further by Telehealth visit with Dr GONZALEZ. She also wants to discuss questions regarding switch to Heparin. What happens if she has to have emergency C/S. She wonders how long she will need to be on med? Will she get to go back to Lovenox? Advised Dr GONZALEZ will go over all this further with her by telehealth visit. LMT Nov 13 2021: Chart reviewed with nurse and I called pt for follow up. Notes LBP, tolerable with supportive care. Discussed d/c Lovenox with start of Heparin at 36wga, reviewed indications. Recommend IOL at 39+wga with return to DVT ppx x 4-6 weeks. PTL precautions reviewed. US today with EFW 5lb3oz, 63rdt%, BPP 8. Continue weekly BPP with repeat growth US in 4 weeks. Nov 05 2021: 32/2w visit OB acute. Clear discharge x3w, had some light brown since last week. speculum exam - clear/white discharge. No brown. Nitrazin e/ferning neg. Vaginitis collected and sent. F/u as scheduled. CM Oct 16 2021: Georgi is 29w3d here for PNV. Good FM. Slight edema when she stands for long periods of time or doesn't drink enough water. Labs done today. She is doing well. No questions/concerns at this time. MR Oct 16 2021: Neg pool, nitrazine, fern. Likely transudative discharge due to small cervical dilation. No contractions. PTL, FM precautions. Growth scan next visit. Glucola, CBC today. Sep 14 2021: Georgi is 24w6d here for PNV. Good FM slight edema. glucola given for next visit. Doing well no concerns. BR Sep 14 2021: Georgi declines Telehealth visit as she is feeling well, no questions, or concerns and FHT checked by u/s. LMT Aug 17 2021: Anatomy scan today wnl, EFW 56th%, ok for . Questions about delivery. Epidural desired. Discussed indication for switch to Heparin from Lovenox at end of Jul 25 2021: Georgi is here for a pnv at 17/4. Possibly FM, feeling fluttering at night. Sl edema in fingers, has taken off rings. Decreased nausea since last appt. Expresses concerns regarding bruising after injecting Lovenox. No further concerns expressed. MK Jul 25 2021: Discussed strategies for Lovenox inj, declines brand change. Anatomy scan next visit. Jun 29 2021: Entry for 06/26/21: Reviewed labs, Rh positive. Continue Lovenox injections. hx constipation with Zofran, rx Promethazine. Trial APAP/benadryl/caffine for headaches. If no improvement, then daily magnesium with Fiorecet for breakthrough headaches. Jun 27 2021: NOB TELEHEALTH VISIT, 25 MINUTE DURATION. Georgi is a 31 year old with an SHIKHA of 12/29/2021, and current GA is 13 w 4 d. She resides with her , Parveen, and their two children, born in 2016 and 2018. Past history updated. Delivery at [facility] is planned with an epidural, and Georgi plans to breastfeed initially, then transition to formula. She reports that her nausea is a little bet Jun 26 2021: Georgi is here for u/s visit. She relates increased h/a's. Nausea off and on and prefers to try something different for nausea as the Zofran causes severe constipation. LMT May 30 2021: Georgi is here for missed menses appt. She relates LMP 03/24, +UPT today in , EDC 12/29/21 which makes her 9 weeks 4 days. She relates mild, vague nausea all day. Unisom did not help very much and made her really tired. Discussed trial of Pepcid as she relates feel nausea when she doesn't eat and then when she does. Small, frequent meals higher in carbs may help. Call if worsens. She is on May 30 2021: as above. Reports nausea, no emesis. Volin too drowsy with Doxylamine otc. Avel has constipated her in the past. She feels nausea manageable with small frequent meals. She walks often. Recently returned from vacation in [place] last month. No plans for travel this . She had the COVID vaccination and inquires about booster vaccination. hx VTE post second delivery and testing showed Factor V Le REVIEW OF SYSTEMS: GENERAL - Denies fever, or chills SKIN - Denies rash, new skin lesions, or change in moles EYES - Denies blurred vision, or change in visual acuity EARS - Denies ear pain, or difficulty hearing NOSE - Denies nasal congestion, discharge, or bleeding MOUTH - Denies sore throat, or difficulty swallowing NECK - Denies pain or swelling RESPIRATORY - Denies shortness of breath, cough, wheezing CARDIOVASCULAR - Denies palpitations, chest pain, orthopnea, PND, peripheral edema, syncope or claudication GASTROINTESTINAL - Denies nausea, vomiting, diarrhea, constipation, Denies abdominal pain, melena and or bright red blood GENITOURINARY - Denies dysuria, frequency of urination, urgency, or hesitancy MUSCULOSKELETAL - Denies joint or muscle pain, or back pain NEUROLOGICAL - Denies localized numbness, weakness, or tingling PSYCHIATRIC - Denies depression, anxiety, substance abuse or suicide attempts ENDOCRINE - Denies heat or cold intolerance, weight loss or gain, increasing thirst HEMATO-IMMUNOLOGIC - Denies easy bruising, bleeding, oral ulcerations or recurrent infections GENETICS SCREENING: Age 35+ years: No Thalassemia: No Neural Tube Defect: No Down Syndrome: No CHRIS-SACHS: No Sickle Cell Disease: No Hemophilia: No Musc. Dystrophy: No Cystic Fibrosis: No-declines screening [place] Chorea: No Mental Retardation: No Fragile X: No Other genetic: No Other defects: No SABs/still births: No Drugs since LMP: Yes INFECTION HISTORY: High risk AIDS: No High risk Hepatitis: No Exposed to TB: No Exposed to Herpes: No Rash/viral illness since LMP: No History of STD: No MENSTRUAL HISTORY: *Menses Amount/Duration: 8-10 daysMenses Regularity: RegularFrequency: monthlyMenarche (Age Onset): 10* PAST SUMMARY: PARITY: 1. Total Pregnancies............ 3 2. Full Term Pregnancies........ 2 3. Premature.................... 0 4. Abortions - Induced.......... 0 5. Abortions - Spontaneous...... 0 6. Ectopics..................... 0 7. Multiple Births.............. 0 8. Living Children.............. 2 PAST #1: Date of :.................. 08/02/15 Gestation Weeks:................ 39 Length of labor(hours):......... 11 Sex:............................ M Weight-lbs:............... 8 Weight-oz:................ 10 Type of Delivery:............... Vag Type of Anesthesia:............. Epidural Place of Delivery:.............. [place] Treatment of Labor?:.... No Comment: LOW PLATELETS EARLY PAST #2: Date of :.................. 01/30/18 Gestation Weeks:................ 41 Length of labor(hours):......... 10 Sex:............................ F Weight-lbs:............... 8 Weight-oz:................ 0 Type of Delivery:............... Vag Type of Anesthesia:............. Epidural Place of Delivery:.............. [place] Treatment of Labor?:.... No Comment: IOL PHYSICAL EXAMINATION General Appearence: 31 yo female in no acute distress Vital Signs: AF, VSS Heart: RRR without rubs or gallops Lungs: CTA x 2 Breasts: deferred Abdomen: gravid Pelvis: Cervix: 2/50 Presentation: cephalic Station: high Fetus: Size: AGA Movement: present Heart: present LAB TEST(S) ORDERED SINCE:04/03/21 06/01/2021 CHLAMYDIA/GC BALDO APTIMA 05/31/2021 URINE CULTURE 05/30/2021 URINE DRUG SCREEN (VISTA) 05/30/2021 URINALYSIS, ROUTINE (DIPSTICK) 05/30/2021 THYROID STIM HORMONE (TSH) 05/30/2021 RUBELLA IGG 05/30/2021 T AND S-NO CHARGE W/PNP 05/30/2021 L509.8000 05/30/2021 HIV - [facility] 05/30/2021 HEPATITIS C ANTIBODY 05/30/2021 HEPATITIS B SURFACE ANTIGEN 05/30/2021 CBC W/DIFF, AUTOMATED 12/19/2021 TYPE AND SCREEN 12/19/2021 COVID 19 AG RAPID (RN COLLECT) 12/19/2021 CBC W/DIFF, AUTOMATED 12/11/2021 STREP GP B CULTURE 12/07/2021 PROTHROMBIN TIME W/INR 12/07/2021 PARTIAL THROMBOPLAST TIME 12/07/2021 CBC-COMPLETE BLOOD CNT NO DIFF 11/07/2021 NUSWAB VAGINITIS PLUS (VG+) 10/23/2021 GESTATIONAL GTT 3HR 100G 10/16/2021 GLUCOSE CHALLENGE GEST 1H 50G 10/16/2021 CBC-COMPLETE BLOOD CNT NO DIFF == ==== Order Observation Description Value Ref_Range A* Site == ==== COVID 19 AG RAP NOTE [facility]~[address] [place], [address]~ TYPE AND SCRE AB SCREEN GEL NEGATIVE ML CBC W/DIFF, AUT NOTE MURRAY CBC W/DIFF, AUT WBC 6.8 K/mm3 4.4-11.0 ML CBC W/DIFF, AUT RBC 4.64 M/mm3 4.2-5.4 ML CBC W/DIFF, AUT HGB 14.2 g/dL 12.0-15.0 ML CBC W/DIFF, AUT HCT 41.1 37-47 ML CBC W/DIFF, AUT MCV 88.6 fL 81-99 ML CBC W/DIFF, AUT MCH 30.6 pg 27.0-32.0 ML CBC W/DIFF, AUT MCHC 34.5 g/dL 32-36 ML CBC W/DIFF, AUT RDW CV 12.9 11.6-14.6 ML CBC W/DIFF, AUT RDW SD 41.9 fl 35.1-43.9 ML CBC W/DIFF, AUT PLT 118 K/mm3 150-450 L ML CBC W/DIFF, AUT MPV 12.6 fl 6.2-12.0 H ML CBC W/DIFF, AUT NEUT% 69.2 47-70 ML CBC W/DIFF, AUT LY% 24.2 19-41 ML CBC W/DIFF, AUT MONO% 4.6 0-10 ML CBC W/DIFF, AUT EO% 0.7 0-5 ML CBC W/DIFF, AUT BASO% 0.6 0-1 ML CBC W/DIFF, AUT IG% 0.700 0.0-0.9 ML IG% - Immature Granulocytes (promyelocytes, myelocytes and metamyelocytes) > 1% indicates that a LEFT SHIFT is Present. CBC W/DIFF, AUT ABSOLUTE NEUT 4.7 X10 3/uL 2.0-7.7 ML CBC W/DIFF, AUT ABSOLUTE LYMPH 1.65 X10 3/uL 0.83-4.51 ML CBC W/DIFF, AUT NUCLEATED RBC 0 0-5 ML CBC-COMPLETE BL NOTE MURRAY CBC-COMPLETE BL WBC 8.3 K/mm3 4.4-11.0 ML CBC-COMPLETE BL RBC 4.30 M/mm3 4.2-5.4 ML CBC-COMPLETE BL HGB 13.3 g/dL 12.0-15.0 ML CBC-COMPLETE BL HCT 39.0 37-47 ML CBC-COMPLETE BL MCV 90.7 fL 81-99 ML CBC-COMPLETE BL MCH 30.9 pg 27.0-32.0 ML CBC-COMPLETE BL MCHC 34.1 g/dL 32-36 ML CBC-COMPLETE BL RDW CV 13.0 11.6-14.6 ML CBC-COMPLETE BL RDW SD 42.4 fl 35.1-43.9 ML CBC-COMPLETE BL PLT 128 K/mm3 150-450 L ML CBC-COMPLETE BL MPV 12.3 fl 6.2-12.0 H ML PARTIAL THROMBO NOTE MURRAY PARTIAL THROMBO PTT 28.9 Seconds 24.1-36.2 ML PROTHROMBIN ASHLIE NOTE MURRAY PROTHROMBIN ASHLIE PROTIME 13.4 SECONDS 11.7-14.9 ML PROTHROMBIN ASHLIE INR 1.0 ML STREP GP B CULT STREP GP B CULTURE Negative Negative LC_CB Centers for Disease Control and Prevention (CDC) and [place] [employer] of Obstetricians and Gynecologists (ACOG) guidelines for prevention of group B streptococcal (GBS) disease specify co-collection of a vaginal and rectal swab specimen to maximize sensitivity of GBS detection. Per the CDC and ACOG, swabbing both the lower vagina and rectum substantially increases the yield of detection compared with sampling the vagina alone. . Penicillin G, ampicillin, or cefazolin are indicated for intrapartum prophylaxis of GBS colonization. Reflex susceptibility testing should be performed prior to use of clindamycin only on GBS isolates from penicillin-allergic women who are considered a high risk for anaphylaxis. Treatment with vancomycin without additional testing is warranted if resistance to clindamycin is noted. NUSWAB VAGINITI ATOPOBIUM VAGINAE Low - 0 Score LC_=G NUSWAB VAGINITI BVAB 2 Low - 0 Score LC_=G NUSWAB VAGINITI MEGASPHAERA 1 Low - 0 Score LC_=G Calculate total score by adding the 3 individual bacterial vaginosis (BV) marker scores together. Total score is interpreted as follows: Total score 0-1: Indicates the absence of BV. Total score 2: Indeterminate for BV. Additional clinical data should be evaluated to establish a diagnosis. Total score 3-6: Indicates the presence of BV. . This test was developed and its performance characteristics determined by [employer] It has not been cleared or approved by the Food and Drug Administration. NUSWAB VAGINITI VERNON ALBICANS, BALDO Negative Negative LC_=G NUSWAB VAGINITI VERNON GLABRATA, BALDO Negative Negative LC_=G NUSWAB VAGINITI TRICH VAG BY BALDO Negative Negative LC_=G NUSWAB VAGINITI CHLAMYDIA TRACHOMATIS, N Negative Negative LC_=G NUSWAB VAGINITI NEISSERIA GONORRHOEAE, N Negative Negative LC_=G Test(s) 238837-[id number] albicans, BALDO; 309351-Rfzgffu glabrata, BALDO was developed and its performance characteristics determined by [employer] It has not been cleared or approved by the Food and Drug Administration. GESTATIONAL GTT NOTE MURRAY GESTATIONAL GTT 3HR GTT- GEST. MG/DL ML FASTING 85 Col: 10/23/21 0853 GLUCOSE TOLERANCE TEST FOR Reference Interval GESTATIONAL DIABETES Fasting <105 mg/dL 1 hour <190 mg/dl 2 hour <165 mg/dl 3 hour <145 mg/dl 1 HR GLU 134 Col: 10/23/21 0953 2 HR GLU 85 Col: 10/23/21 1053 3 HR GLU 72 Col: 10/23/21 1153 GLUCOSE CHALLEN NOTE MURRAY GLUCOSE CHALLEN GLU GEST 50G 1H 150 mg/dL 70-140 H ML CBC-COMPLETE BL NOTE MURRAY CBC-COMPLETE BL WBC 9.4 K/mm3 4.4-11.0 ML CBC-COMPLETE BL RBC 4.32 M/mm3 4.2-5.4 ML CBC-COMPLETE BL HGB 13.6 g/dL 12.0-15.0 ML CBC-COMPLETE BL HCT 39.5 37-47 ML CBC-COMPLETE BL MCV 91.4 fL 81-99 ML CBC-COMPLETE BL MCH 31.5 pg 27.0-32.0 ML CBC-COMPLETE BL MCHC 34.4 g/dL 32-36 ML CBC-COMPLETE BL RDW CV 12.8 11.6-14.6 ML CBC-COMPLETE BL RDW SD 42.4 fl 35.1-43.9 ML CBC-COMPLETE BL PLT 160 K/mm3 150-450 ML CBC-COMPLETE BL MPV 11.9 fl 6.2-12.0 ML URINE CULTURE NOTE MURRAY PN N [facility]~[address] [place], [address]~ T AND AB SCREEN GEL NEGATIVE ML HEPATITIS C ANT NOTE MURRAY HEPATITIS C ANT HEPATITIS C AB Non-Reactive Nonreactive ML Non Reactive: < 0.8 Equivocal: >/= 0.8 to < 1.0 Reactive: >/= 1.0 The CDC recommends that a reactive/equivocal HCV antibody result be followed up by the HCV Nucleic Acid Amplification test (528336) HEPATITIS B JAM NOTE MURRAY HEPATITIS B JAM HEP B SURF AG Non-Reactive Nonreactive ML HIV - WC NOTE MURRAY HIV - [facility] HIV Non-Reactive Nonreactive ML L509.8000 NOTE MURRAY L509.8000 SYPHILIS ABS Non-reactive ML RUBELLA IGG NOTE MURRAY RUBELLA IGG RUBELLA IGG Reactive Nonreactive ML Antibody Results Interpretation of Immune Status Non Reactive Presumed Non-Immune Equivocal Equivocal Reactive Presumed Immune THYROID STIM HO NOTE MURRAY THYROID STIM HO TSH 1.38 uIU/mL 0.358-3.74 ML URINE DRUG SCRE NOTE MURRAY URINE DRUG SCRE VISTA UDS PH 6 ML URINE DRUG SCRE AMPHETAMINES NEGATIVE <1000 ng/mL ML URINE DRUG SCRE BARBITIURATES NEGATIVE < 200 ng/mL ML URINE DRUG SCRE BENZODIAZIPINE NEGATIVE < 200 ng/mL ML URINE DRUG SCRE COCAINE NEGATIVE < 300 ng/mL ML URINE DRUG SCRE ECSTACY NEGATIVE < 500 ng/mL ML URINE DRUG SCRE METHADONE NEGATIVE < 300 ng/mL ML URINE DRUG SCRE OPIATES NEGATIVE < 300 ng/mL ML URINE DRUG SCRE PCP NEGATIVE < 25 ng/mL ML URINE DRUG SCRE THC NEGATIVE < 50 ng/mL ML URINALYSIS, ROU NOTE MURRAY URINALYSIS, ROU COLOR Yellow Yellow ML URINALYSIS, ROU URINE CLARITY Sl. Cloudy Clear ML URINALYSIS, ROU GLUCOSE, UR Normal mg/dl Normal ML URINALYSIS, ROU BILIRUBIN URINE Negative mg/dL Negative ML URINALYSIS, ROU KETONE UR Negative mg/dl Negative ML URINALYSIS, ROU SP.GR. DIPSTX 1.010 1.002-1.030 ML URINALYSIS, ROU PH UR 6.5 5.0 - 8.0 ML URINALYSIS, ROU PROT DIPSTX Negative mg/dl Negative ML URINALYSIS, ROU UROBILI Normal mg/dl Normal ML URINALYSIS, ROU NITRITE Negative Negative ML URINALYSIS, ROU OCCULT BLOOD-UR 10 /ul Negative A ML URINALYSIS, ROU LEUK ESTERASE 500 /ul Negative A ML CBC W/DIFF, AUT NOTE MURRAY CBC W/DIFF, AUT WBC 8.6 K/mm3 4.4-11.0 ML CBC W/DIFF, AUT RBC 4.58 M/mm3 4.2-5.4 ML CBC W/DIFF, AUT HGB 14.1 g/dL 12.0-15.0 ML CBC W/DIFF, AUT HCT 41.0 37-47 ML CBC W/DIFF, AUT MCV 89.5 fL 81-99 ML CBC W/DIFF, AUT MCH 30.8 pg 27.0-32.0 ML CBC W/DIFF, AUT MCHC 34.4 g/dL 32-36 ML CBC W/DIFF, AUT RDW CV 12.0 11.6-14.6 ML CBC W/DIFF, AUT RDW SD 38.4 fl 35.1-43.9 ML CBC W/DIFF, AUT PLT 218 K/mm3 150-450 ML CBC W/DIFF, AUT MPV 11.5 fl 6.2-12.0 ML CBC W/DIFF, AUT NEUT% 76.8 47-70 H ML CBC W/DIFF, AUT LY% 16.9 19-41 L ML CBC W/DIFF, AUT MONO% 4.8 0-10 ML CBC W/DIFF, AUT EO% 0.9 0-5 ML CBC W/DIFF, AUT BASO% 0.3 0-1 ML CBC W/DIFF, AUT IG% 0.300 0.0-0.9 ML IG% - Immature Granulocytes (promyelocytes, myelocytes and metamyelocytes) > 1% indicates that a LEFT SHIFT is Present. CBC W/DIFF, AUT ABSOLUTE NEUT 6.6 X10 3/uL 2.0-7.7 ML CBC W/DIFF, AUT ABSOLUTE LYMPH 1.45 X10 3/uL 0.83-4.51 ML CBC W/DIFF, AUT NUCLEATED RBC 0 0-5 ML CHLAMYDIA/GC NA NOTE MURRAY CHLAMYDIA/GC NA CHLAMY,NUC ACID Negative Negative LCI CHLAMYDIA/GC NA GC BY NUC ACID Negative Negative LCI Performed at: =[facility] [id number] Continuous Improvement Facilitator: Debra Mcdonnell MD, Phone: [phone] *Negative results from patients with symptom onset beyond five days should be treated as presumptive and confirmed by a molecular assay if clinically necessary. Negative results should not be used as the sole basis for treatment or for patient management. SARS-CoV-2 Ag Resp Ql IA.rapid *Positive results do not differentiate between SARS-CoV and SARS-CoV-2. If differentiation of the specific SARS virus is desired an additional sample and an additional order is required. SARS-CoV-2 Ag Resp Ql IA.rapid * This test has not been FDA cleared or approved; the test has been authorized by FDA under an Emergency Use Authorization (EAU) for use by laboratories certified under CLIA that meet the requirements to perform moderate, high, or waived complexity tests. SARS-CoV-2 Ag Resp Ql IA.rapid Normal Reference Range: Negative SARS-CoV-2 (COVID 19) Negative RAPID METHOD Quidel Gracie Analyzer NIKHIL B POSITIVE Mixed Gram Pos Gram Neg Org [place] Count 11,000-25,000 MIXC Mixed contaminants. Submit a new specimen if indicated. B POSITIVE == ==== Impression /Plan: 38 wks + 4 days intrauterine with cholestasis of . Plan cytotec induction. Preparations in progress for delivery.
--- NOTE | 2021-12-20 01:25 | EX.PCM.OBRPT ---
Maternal Data Information Gestational age: 38w5d gestation Vaginal Delivery Maternal Presentation Maternal Presentation: Medically Indicated Induction (Cholestasis of ) Type of Induction: Cytotec Operative Information Date of Procedure: 12/20/21 Pre-Operative Diagnosis: IUP Post-Operative Diagnosis: IUP Surgery / Procedure Performed: Spontaneous Vaginal Delivery Type of Anesthesia: None Estimated Blood Loss: 250 cc Fluids Replaced: Crystalloid Findings Description of Procedure: Spontaneous vaginal delivery of a viable female infant with Apgars of 6/9 from an occiput anterior presentation in the cull with a normal three-vessel placenta and clear amniotic fluid. No episiotomy. First-degree midline laceration repaired with 3-0 Rapide suture. Patient precipitously delivered during Cytotec induction and was delivered by the nurse before I was able to arrive at the hospital. Nursing clamped the umbilical cord. I delivered the placenta and repaired the first-degree midline laceration without difficulty. Sponges okay. Attending physician: Girish Young MD. Presentation: Vertex Amniotic Membrane Rupture Type: Spontaneous (At delivery) Amniotic Fluid Description: Clear Placental Delivery Description: Spontaneous Placenta Disposition: [facility] Cord Vessel Description: 3 Vessels Cord Entanglement: None Infant A Gender: Female (1 minute): 6 (5 minute): 9 Post Vaginal Delivery Medications Given After Delivery: IV Pitocin Episiotomy Description: None Laceration: Midline and 1st degree Complication Complications: None
--- NOTE | 2021-12-20 01:58 | NURSING ---
Baby delivered en caul, bag ruptured at delivery
[2021-12-20] MEDS: Acetaminophen 500 MG Tablet 1000 MG PO ×2 (02:11→18:10)
[2021-12-20] MEDS: Ibuprofen 600 MG Tablet PO (05:32)
[2021-12-20] MEDS: Enoxaparin 40 MG/0.4 ML Syringe SC (09:11)
--- NOTE | 2021-12-20 15:00 | NURSING ---
Patient requests that she does not receive further assistance while in the hospital. She wishes to formula feed primarily and supplement with expressed breastmilk at home. She has decided to bottlefeed with formula while in the hospital.
[2021-12-20] MEDS: Senna/Docusate Sodium 1 Tablet PO (18:10)
[2021-12-21] MEDS: Acetaminophen 500 MG Tablet 1000 MG PO ×2 (00:39→06:18)
[2021-12-21 00:45] VITALS: BP 126/77; PULSE 57; PULSE 63; RESP 16; TEMP 36.6; O2SAT 93; O2SAT 96
[2021-12-21 00:46] VITALS: PULSE 63; O2SAT 96
[2021-12-21 04:07] VITALS: O2SAT 98
[2021-12-21 04:08] VITALS: BP 99/55; PULSE 55; PULSE 65; RESP 16; TEMP 36.8; O2SAT 97
--- NOTE | 2021-12-21 07:30 | PCM.DC ---
Discharge Instructions Diet Discharge Diet: No restrictions Activity Discharge Activity: Return to Normal Activity, May Drive and May Shower Weight Bearing Status: Weight bearing as tolerated Dressing / Incision Call your doctor if your incision/area has: Continuous Slow Oozing and Sudden Increased Bleeding Call your doctor if you observe: Fever of 101 or Higher, Shortness of breath and Chest pain Follow Up Care Please Follow Up With: Kalani Delgado MD When: 2-week telehealth, 4 to 6 weeks Test Results: Test results from this visit will be discussed in further detail at your follow-up appointment, if applicable. Discharge Plan Admission Admit Date/Time: 12/19/21 14:42 Attending Provider: Girish Young Primary Care Provider: Danilo Mitchell Discharge Orders/Prescriptions Prescriptions: No Action heparin (porcine) 10,000 unit/mL solution 1 unit subcut BID RF: 0 DHA 200 mg Capsule 200 mg PO DAILY RF: 0 aspirin 81 mg Capsule 81 mg PO DAILY RF: 0 Disposition Discharge Orders: Discharge Patient (Routine); Ordered 12/21/21 Ordered By: Dr. Sawyer Guzman
--- NOTE | 2021-12-21 07:30 | PCM.PN.OB ---
Subjective Subjective No overnight complaints Objective Data Objective Data Vital Signs: Vital Signs Temp Pulse Resp BP Pulse Ox 98.3 F 65 16 99/55 L 97 12/21/21 04:08 12/21/21 04:08 12/21/21 04:08 12/21/21 04:08 12/21/21 04:08 Oxygen Delivery Method Room Air Weight: 233 lb Body Mass Index (BMI) 31.6 Intake & Output: Intake and Output for Last 24 Hours 12/19/21 12/20/21 12/21/21 23:59 23:59 23:59 Intake Total 200 / 200 1163.33 / 1163.33 Output Total 1100 / 1100 1000 / 1000 Balance -900 / -900 163.33 / 163.33 Lab / Micro Data Result Diagrams: 12/19/21 15:30 Micro: Microbiology 12/19/21 15:38 Nasal Secretion SARS-CoV-2 Antigen (Rapid) - Final Physical Exam Const alert, oriented x3, no apparent distress, average body habitus, healthy appearing and well nourished HEENT normocephalic and moist oral mucous membranes Head and Scalp: atraumatic Face and Sinus: normal facial exam Eyes PERRL Neck full ROM Resp normal respiratory effort, no retractions and no use of accessory muscles GI normal to inspection, nondistended, normoactive bowel sounds GI Narrative: Fundus firm and below umbilicus Extremity normal to inspection, full ROM and no clubbing, cyanosis or edema Psych mental status grossly normal, affect normal, speech normal and activity/motor behavior normal Assessment & Plan (1) (spontaneous vaginal delivery): PLAN: day 1. Breast and formula feeding. Cholestasis we will repeat labs at visit. History of DVT, to continue Lovenox 40 mg daily for 6 weeks. Will reevaluate at visit. 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
[2021-12-21 08:00] VITALS: BP 125/78; PULSE 70; RESP 18; TEMP 36.3; O2SAT 97
[2021-12-21 08:02] VITALS: BP 125/78; PULSE 70
[2021-12-21] MEDS: Enoxaparin 40 MG/0.4 ML Syringe SC (09:23)
[2021-12-21] MEDS: Senna/Docusate Sodium 1 Tablet PO (09:24)
--- NOTE | 2021-12-21 10:09 | NURSING ---
Am assessment and vital signs performed by student under RN instuctor supervision. Charting reviewed. 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
== END 2021-12-21 10:00 | disposition home or self-care (01) | DRG 805 ==
PROVIDERS: Admitting Provider Obstetrics & Gynecology; PCP Family Medicine; Visit Provider Obstetrics & Gynecology
DX: O26.62 Liver and biliary tract disorders in childbirth (principal); Z37.0 Single live birth; K83.1 Obstruction of bile duct; O70.0 First degree perineal laceration during delivery; Z79.01 Long term (current) use of anticoagulants; Z3A.38 38 weeks gestation of pregnancy
CPT/HCPCS: 59025; 59050; 85025; 86850; 86900; 86901; 87426; 99218; J7120; G0378

== ENCOUNTER → 2022-01-29 | Outpatient (CLI) | payer OTHER, SELFPAY ==
[2022-01-29 15:45] LABS: AST(SGOT) 27 U/L (15-37); Alanine Aminotransfer ALT/SGPT 50 U/L (13-56); Albumin, Serum 4.1 g/dL (3.2-5.0); Alkaline Phosphatase 72 U/L (45-117); Bilirubin, Direct 0.12 mg/dL (0.00-0.30); Globulin 3.3 g/dL (2.2-4.2); Protein, Total 7.4 g/dL (6.4-8.2)
== END | disposition home or self-care (01) ==
PROVIDERS: PCP Family Medicine; Visit Provider Obstetrics & Gynecology
DX: R74.8 Abnormal levels of other serum enzymes (principal)
CPT/HCPCS: 36415; 80076

== ENCOUNTER → 2025-03-17 | Outpatient (CLI) | payer OTHER, SELFPAY | END | disposition home or self-care (01) | LOC: SL 20:06 | PROVIDERS: PCP Internal Medicine; Referring Provider Internal Medicine; Visit Provider Internal Medicine | DX: R40.0 Somnolence (principal); R53.83 Other fatigue; R51.9 Headache, unspecified | CPT/HCPCS: 95810 ==

== ENCOUNTER → 2025-07-26 | Outpatient (CLI) | payer OTHER, SELFPAY ==
[2025-07-26 11:02] LABS: Hematocrit 42.0 % (37-47); Hemoglobin 14.4 g/dL (12.0-15.0); Immature Granulocytes Count 0.010 X10^3/uL (0.0-0.0); Mean Corp Hgb Conc 34.3 g/dL (32-36); Mean Corpuscular Volume 89.2 fL (81-99); Mean Platelet Vol. 11.2 fl (6.2-12.0); NRBC Flagged by Analyzer 0 % (0-5); Platelet Count 191 K/mm3 (150-450); RBC Distribution Width CV 12.2 % (11.6-14.6); RBC Distribution Width SD 39.9 fl (35.1-43.9); Red Blood Count 4.71 M/mm3 (4.2-5.4); White Blood Count 6.4 K/mm3 (4.4-11.0)
[2025-07-26 11:06] LABS: Color, Urine Yellow (Yellow); Glucose, Dipstick Normal (Normal); Ketone-Dipstick Negative (Negative); Leukocyte Esterase-Dipstick 25 /ul (Negative); Nitrite-Dipstick Negative (Negative); Occult Blood-Urine 250 /ul (Negative); Protein-Dipstick 30 mg/dl (Negative); Specific Gravity, Urine 1.015 (1.002-1.030); Urine Bilirubin Dipstick Negative (Negative)
[2025-07-26 11:42] LABS: AST(SGOT) 13 U/L (<=31); Alanine Aminotransfer ALT/SGPT 14 U/L (<=34); Albumin, Serum 4.5 g/dL (3.5-5.0); Alkaline Phosphatase 58 U/L (35-104); Anion Gap 7 (7-18); BUN 19 mg/dL (4-19); BUN/Creat Ratio 18.8 RATIO (10-20); Calcium,Total 8.9 mg/dL (7.6-11.0); Carbon Dioxide 26.4 mmol/L (20.0-29.0); Chloride 106 mmol/L (96-106); Globulin 2.1 g/dL (2.2-4.2); Glucose 84 mg/dL (70-99); Potassium 4.5 mmol/L (3.5-5.1)
== END | disposition home or self-care (01) ==
LOC: LABSPEC 09:45
PROVIDERS: PCP Internal Medicine; Referring Provider Internal Medicine; Visit Provider Internal Medicine
DX: R53.83 Other fatigue (principal)
CPT/HCPCS: 80053; 81002; 85025